=== PATIENT | male | born 1975 | race Caucasian/White ===

== ENCOUNTER 2018-08-27 09:55 | Emergency (ER) | payer OTHER ==
[~2018-08-27] VITALS: Ht 175.3 cm; Wt 81.6 kg
[2018-08-27] MEDS ORDERED: NAPR500T14 PO (12:07)
== END 2018-08-27 12:18 | disposition home or self-care (01) ==
LOC: ER 09:55
DX: M94.0 Chondrocostal junction syndrome [Tietze] (principal)